=== PATIENT | female | born 1995 | race African-American/Black ===

== ENCOUNTER 2022-12-17 05:11 | Emergency (ER) | payer MEDICAID, SELFPAY ==
[2022-12-17 05:15] VITALS: BP 122/93; PULSE 87; RESP 20; TEMP 36.7; O2SAT 98; BMI 31.2
[2022-12-17 05:47] VITALS: O2SAT 98
--- NOTE | 2022-12-17 05:56 | PC.NURSE ---
pt a&ox3. respirations even and unlabored. pt reports a sore throat, ear pain and lower jaw pain since friday night. pt denies chest pain and SOB. lung sounds clear bilaterally. pt throat red without any visible white patches. pt reports pain when opening jaw. pt reports having a cold a few weeks ago and feels her symptoms have not subsided. pt normal sinus on tele 80-90.
[2022-12-17 06:29] VITALS: BP 117/72; PULSE 67; RESP 15; TEMP 36.2; O2SAT 95
--- NOTE | 2022-12-17 06:30 | ED_ITS ---
HPI - URI/Sore Throat General Chief Complaint: Upper Respiratory Symptoms Stated Complaint: Head Pain/ ?Sore throat Time Seen by Provider: 12/17/22 06:25 Source: patient Mode of arrival: ambulatory Limitations: no limitations History of Present Illness HPI Narrative: 27 yo female presents to the ER for evaluation of a 2 day history of increasing dental pain surrounding area of her wisdom teeth removal. Last dental work was a cavity filling at the beginning of November and wisdom tooth removal was April 2022. She reports pain with jaw movement but denies dysphasia, sore throat, cough. Denies FLOYD, fever, chills, SOB, N/V, changes in bowel movements. No trauma to the area reported. Patient's roommate noticed she was gasping for air in her sleep and encouraged patient to come to ER. MD elicited complaint: other (mouth pain) Onset (ago): day(s) (2) Consistency: progressively worsening Severity: moderate Exacerbating factors: other (opening jaw, talking, chewing) Associated symptoms: denies other symptoms Treatments prior to arrival: none Related Data Previous Rx's Medication Instructions Recorded amoxicillin 875 mg-potassium 1 tab PO BID #14 tabs 12/17/22 clavulanate 125 mg tablet ibuprofen 600 mg tablet 600 mg PO Q8H PRN pain #14 tabs 12/17/22 Allergies Allergy/AdvReac Type Severity Reaction Status Date / Time No Known Allergies Allergy Verified 12/17/22 05:27 Review of Systems Review of Systems: Yes all other systems are reviewed and are negative PMFSH Social History Social History Smoked in Last 30 Days: No Use of substances other than those prescribed or required for medical reasons: No Advance Directives: No Physical Exam Vital Signs: Vital Signs: Last Vital Signs Temp 97.2 F 12/17/22 06:29 Pulse 66 12/17/22 07:38 Resp 15 12/17/22 06:29 BP 126/73 12/17/22 07:38 Pulse Ox 95 12/17/22 06:29 O2 Del Method Room Air 12/17/22 06:29 BMI result Body Mass Index 31.2 Appearance: Alert. Oriented X3. No acute distress. Head: normocephalic, atraumatic. Eyes: Pupils equal, round and reactive to light. ENT: Pharynx normal. No tonsillar swelling or exudate. [place] teeth incisions tender to palpations and are white w no erythema or swelling. no fluctunace appreciated. no trismus Neck: Normal inspection. Neck supple. CVS: Normal heart rate and rhythm. Pulses normal. Respiratory: No respiratory distress. Breath sounds normal. Abdomen: Soft and nontender. +BS x4 Skin: Skin warm and dry. Normal skin color. Normal skin turgor. No rashes. Extremities: No lower extremity edema. No joint swelling. Neuro/psych: Oriented X 3. Grossly normal. CN II-XII intact. Normal speech and cognition. Medications Administered Discontinued Medications Generic Name Dose Route Start Last Admin Trade Name Freq PRN Reason Stop Dose Admin Acetaminophen 975 mg 12/17/22 06:31 12/17/22 06:42 Acetaminophen 325 Mg Tablet PO 12/17/22 06:32 975 mg ONCE ONE Administration Lidocaine HCl 15 ml 12/17/22 06:31 12/17/22 06:42 Lidocaine Hcl Viscous 2 % 15 Ml Solution MUCOUS MEM 12/17/22 06:32 15 ml ONCE ONE Administration Medical Decision Making Medical Decision Making [facility] Narrative: 27 yo female presents to the ER for evaluation of a 2 day history of increasing dental pain surrounding area of her wisdom teeth removal which was in April 2022. Vitals stable upon arrival. PE exam showed no erythema, swelling, or signs of infection near wisdom teeth incisions. Strep, flu, covid negative. Patient's findings bring concern for early dental abscess. very low suspicion for jaw osteomyletitis. Patient was given lidocaine 15ml oral solution and acetominophen 975mg. Discharged on ibuprofen 600mg q8h and Augmentin x7 days. Patient was instructed to return to ED in the event of worsening or persisting symptoms. She also was instructed to follow up with her dentist. Differential Diagnosis Differential Diagnoses: The differential diagnosis associated with the presentation includes Early bilateral dental abscess, cellulitis, toothache, vs jaw osteomyelitis (less likely) Lab Data [facility] Lab Attestation statement: I reviewed the patient's lab results. Labs: Lab Results 12/17/22 Range/Units 05:29 Influenza Type A (PCR) NEGATIVE (Negative) Influenza Type B (PCR) NEGATIVE (Negative) RSV RNA Qual (PCR) NEGATIVE (Negative) SARS-CoV-2 RNA (RT-PCR) NEGATIVE (Negative) S. pyogenes GrpA NARENDRA Negative (Negative) Prescription Management I considered prescription management with: Pain Medication and Antibiotic Critical Care Time Critical Care Time Critical Care Time: No Discharge Plan Discharge Clinical Impression: Pain, dental Patient Disposition: Home, Self-Care Instructions: Toothache (ED) Additional Instructions: Take the prescribed antibiotics as directed, complete the entire course and do not miss any doses Take the prescribed anti-inflammatory medication as needed for pain and swelling Recommend over the counter Orajel to the area. You can also try clove oil or a h ot black tea bag. Follow up with a dentist as soon as possible. If you develop new or worsening symptoms call 911 or come back to the ER for further evaluation. Prescriptions: New amoxicillin-pot clavulanate 875-125 mg tablet 1 tab PO BID Qty: 14 0RF ibuprofen 600 mg tablet 600 mg PO Q8H PRN (Reason: pain) Qty: 14 0RF Stand Alone Forms: Work/School Release Interventions: ED Discharge Assessment Last Done: 12/17/22 07:35 Discharge Date/Time: 12/17/22 07:45
[2022-12-17 06:40] LABS: IDNOW Serial# 6674DD1D; Strep A Nucleic Acid Negative (Negative)
[2022-12-17] MEDS: Acetaminophen 325 MG TABLET 975 MG PO (06:42)
[2022-12-17] MEDS: Lidocaine HCl Viscous 2 % 15 ML SOLUTION MUCOUS MEM (06:42)
[2022-12-17 07:02] LABS: Influenza A PCR NEGATIVE (Negative); Influenza B PCR NEGATIVE (Negative); Resp Syncy Virus RNA Qual PCR NEGATIVE (Negative); SARS COV2 PCR INHOUSE NEGATIVE (Negative)
--- NOTE | 2022-12-17 07:36 | PC.NURSE ---
pt seen by ed provider and is cleared for discharge. discharge instructions reviewed with pt. denies pain. vss.
[2022-12-17 07:38] VITALS: BP 126/73; PULSE 66
== END 2022-12-17 07:45 | disposition home or self-care (01) ==
PROVIDERS: Emergency Provider Emergency Medicine
DX: K08.89 Other specified disorders of teeth and supporting structures (principal); Z11.52 Encounter for screening for COVID-19; Z20.828 Contact with and (suspected) exposure to other viral communicable diseases
CPT/HCPCS: 0241U; 87651; 99283; 99285

== ENCOUNTER 2023-01-08 07:15 | Emergency (ER) | payer MEDICAID, SELFPAY ==
[2023-01-08 07:31] VITALS: BP 144/69; PULSE 75; RESP 18; TEMP 36.7; O2SAT 97; BMI 30.4
--- NOTE | 2023-01-08 07:50 | PC.NURSE ---
declined bloodwork and iv at this time, afraid of needles and wants po med
[2023-01-08] MEDS: Famotidine 20 MG TABLET PO (08:54)
[2023-01-08] MEDS: Ondansetron ODT 4 MG TAB.RAPDIS TRANSLINGU (08:54)
[2023-01-08 09:25] LABS: COVID-19 Test Negative (Negative); IDNOW Serial# BCCEAD1C
[2023-01-08 09:55] LABS: Appearance Urine Clear; Color Urine Yellow; Glucose Urine UA Negative (Negative); Leukocyte Esterase Urine Negative (Negative); Nitrite Urine Negative (Negative); Specific Gravity - Urine 1.015 (1.005-1.025); Urine Blood Negative (Negative); Urine Ketones Trace mg/dL (Negative); Urine Protein Negative (Neg-Trace)
[2023-01-08 09:57] LABS: UPreg QC Valid YES; Urine Pregnancy NEGATIVE (NEGATIVE)
--- NOTE | 2023-01-08 10:09 | ED.NAVMDI ---
HPI - Nausea/Vomiting/Diarrhea General Chief complaint: Nausea/Vomiting/Diarrhea Stated complaint: Vomiting Time Seen by Provider: 01/08/23 07:55 Source: patient Mode of arrival: ambulatory Limitations: no limitations History of Present Illness HPI Narrative: Nausea, vomiting and diarrhea started last night after eating. Her friend had the same food without getting sick. MD elicited complaint: nausea, vomiting and diarrhea Onset (ago): hour(s) Severity: moderate Related Data Previous Rx's Medication Instructions Recorded ibuprofen 600 mg tablet 600 mg PO Q8H PRN pain #14 tabs 12/17/22 penicillin V potassium 500 mg 500 mg PO TID 1 week #21 tabs 12/17/22 tablet ondansetron 4 mg disintegrating 4 mg PO Q8H 4 days #12 tabs 01/08/23 tablet pantoprazole 40 mg tablet,delayed 40 mg PO DAILY #20 tabs 01/08/23 release (Protonix) Allergies Allergy/AdvReac Type Severity Reaction Status Date / Time No Known Allergies Allergy Verified 01/08/23 07:36 Review of Systems Review of Systems: Yes all other systems are reviewed and are negative Neurologic: Denies Sensory deficit (Neuro) [facility] Social History Social History Advance Directives: No Advance Directives Information Provided: No Physical Exam Vital Signs: Vital Signs: Last Vital Signs Temp 98.0 F 01/08/23 07:31 Pulse 75 01/08/23 07:31 Resp 18 01/08/23 07:31 BP 144/69 H 01/08/23 07:31 Pulse Ox 97 01/08/23 07:31 O2 Del Method Room Air 01/08/23 07:31 BMI result Body Mass Index 30.4 Const: General: healthy appearing Nutritional Appearance: average body habitus Orientation/consciousness: oriented to person and patient oriented x3 Limitations: no limitations HEENT: Head: Yes normal to inspection Ears: external ears normal General nose exam: Normal external nose present Mouth: Normal oral and palatal mucosa present and oropharynx normal Throat: Yes posterior oropharynx normal Eyes: General: appearance normal, both eyes and all related structures Neck: Other: supple Neck: Yes normal visual inspection Chest: Chest palpation & inspection: normal inspection of the chest Resp: Auscultation: clear to auscultation bilaterally Cardio: Jugular venous distension: no JVD Rate: regular rate Rhythm: regular rhythm Heart sounds: S1 normal heart sound present and S2 normal heart sound present GI: Inspection: Yes normal to inspection Palpation (GI): Soft to palpation, nontender and No hepatosplenomegaly present Auscultation: normal bowel sounds : General: Yes no CVA tenderness Back/Spine/Pelvis: Back: no CVA tenderness Skin: General skin exam: no rashes or lesions noted Neuro: General: oriented to person and patient oriented x3 Cranial nerves: Yes CN's II-XII intact bilaterally Motor exam (neuro): 5/5 motor strength present throughout Sensory Exam: No Sensory deficit (Neuro) Extrem: General: Yes normal to inspection Psych: Appearance: grossly normal Course Reevaluation(s) Reevaluation #1: Patient with likely viral gastroenteritis, improved with zofran and pepcid will dc home Time: 10:11 Medications Administered Discontinued Medications Generic Name Dose Route Start Last Admin Trade Name Freq PRN Reason Stop Dose Admin Famotidine 20 mg 01/08/23 08:43 01/08/23 08:54 Famotidine 20 Mg Tablet PO 01/08/23 08:44 20 mg ONCE ONE Administration Ondansetron HCl 4 mg 01/08/23 08:43 01/08/23 08:54 Ondansetron Odt 4 Mg Tab.Rapdis TRANSLINGU 01/08/23 08:44 4 mg ONCE ONE Administration Medical Decision Making Differential Diagnosis Differential Diagnoses: The differential diagnosis associated with the presentation includes (gastroenteritis, food poisoning, were all considered) Lab Data [facility] Lab Attestation statement: I reviewed the patient's lab results. (no no Covid) Labs: Lab Results 01/08/23 01/08/23 Range/Units 09:01 09:45 Urine Color Yellow Urine Appearance Clear Urine pH 6.0 (5.0-9.0) Ur Specific [place] 1.015 (1.005-1.025) Urine Protein Negative (Neg-Trace) mg/dL Urine Glucose (UA) Negative (Negative) mg/dL Urine Ketones Trace (Negative) mg/dL Urine Blood Negative (Negative) Urine Nitrite Negative (Negative) Ur Leukocyte Esterase Negative (Negative) Urine Test NEGATIVE (NEGATIVE) COVID-19 (SARAH) Negative (Negative) COVID-19 Clin Com See Note Tests considered The following testing was considered but not selected: I considered blood work but the patient is well appearing Prescription Management I considered prescription management with: Antibiotic (no evidence of bacterial illnees) Discharge Plan Discharge Clinical Impression: Gastroenteritis Patient Disposition: Home, Self-Care Instructions: Acute Nausea and Vomiting (ED), Enteritis (ED) Prescriptions: New pantoprazole [Protonix] 40 mg tablet,delayed release (DR/EC) 40 mg PO DAILY Qty: 20 0RF ondansetron 4 mg tablet,disintegrating 4 mg PO Q8H 4 Days Qty: 12 0RF No Action ibuprofen 600 mg tablet 600 mg PO Q8H PRN (Reason: pain) Qty: 14 0RF penicillin V potassium 500 mg tablet 500 mg PO TID 7 Days Qty: 21 0RF Referrals: Physician,Nonstaff [Primary Care Provider] - 3 days
== END 2023-01-08 10:18 | disposition home or self-care (01) ==
PROVIDERS: Emergency Provider Emergency Medicine
DX: K52.9 Noninfective gastroenteritis and colitis, unspecified (principal); R11.2 Nausea with vomiting, unspecified; Z11.52 Encounter for screening for COVID-19
CPT/HCPCS: 81003; 81025; 87635; 99283